=== PATIENT | male | born 1970 | race African-American/Black ===

== ENCOUNTER 2017-10-30 13:26 | Emergency (ER) | payer MEDICAID ==
[~2017-10-30] VITALS: Ht 157.5 cm; Wt 74.0 kg
[2017-10-30 13:32] VITALS: BP 111/66
== END 2017-10-30 14:19 | disposition home or self-care (01) ==
LOC: ER 14:11
DX: B35.3 Tinea pedis (principal); B35.1 Tinea unguium
CPT/HCPCS: 99282